=== PATIENT | female | born 1945 | race Caucasian/White ===

== ENCOUNTER 2020-06-09 14:44 | Inpatient (IN) | payer MEDICARE ==
[~2020-06-09] VITALS: Ht 167.6 cm; Wt 89.8 kg
--- NOTE | 2020-06-09 14:45 | NUR ---
MAL 38 FROM [facility] C/O R LEG/HIP AND R SHOULDER PAIN S/P GLF 2 DAYS AGO. TO ER BED 10, HOOKED TO MONITOR, CHANGED TO HOSP GOWN, WARM BLANKET PROVIDED, PATIENT AAOx2. NAD NOTED. AWAITING MD MARSH
[2020-06-09] MEDS ORDERED: DULO30CA52 PO (14:55)
[2020-06-09] MEDS ORDERED: LOVA40TA2 PO (14:55)
[2020-06-09] MEDS ORDERED: SERT-438 PO (14:55)
[2020-06-09] MEDS ORDERED: LEVO100T9 PO (14:55)
[2020-06-09] MEDS ORDERED: AMIO100T4 PO (14:55)
[2020-06-09] MEDS ORDERED: OXYB10TA30 PO (14:55)
[2020-06-09] MEDS ORDERED: ALLO100T PO (14:55)
[2020-06-09] MEDS ORDERED: SENN-261 PO (14:55)
[2020-06-09] MEDS ORDERED: MAGN500T2 PO (14:55)
[2020-06-09] MEDS ORDERED: DOCU-270 PO (14:55)
[2020-06-09] MEDS ORDERED: FAMO20TA8 PO (14:55)
[2020-06-09] MEDS ORDERED: ASPI-1420 PO (14:55)
[2020-06-09] MEDS ORDERED: LEVE100023 PO (14:55)
[2020-06-09] MEDS ORDERED: METF-440 PO (14:55)
[2020-06-09] MEDS ORDERED: DONE10TA44 PO (14:55)
--- NOTE | 2020-06-09 15:06 | NUR ---
DAUGHTER: HONEY WHALEN [phone]
--- NOTE | 2020-06-09 15:07 | NUR ---
SOPHIA Pineda[facility]C [phone]
--- NOTE | 2020-06-09 15:17 | NUR ---
HEALTH CARE SANITARY TECHNICIAN AT BEDSIDE
[2020-06-09 15:20] LABS: BASOPHILS # (AUTO) 0.2 /CMM (0.0-0.2); BASOPHILS % (AUTO) 1.3 % (0.0-2.0); EOSINOPHILS % (AUTO) 8.2 % (0.0-6.0); HEMATOCRIT 41 % (33-45); HEMOGLOBIN 13.3 g/dL (11.5-14.8); LYMPHOCYTES % (AUTO) 18.5 % (20.0-44.0); MEAN CORPUSCULAR HGB CONC 32 g/dl (31.0-36.0); MEAN CORPUSCULAR VOLUME 96 fL (82-100); MONOCYTES # (AUTO) 1.9 /CMM (0.1-1.30); NEUTROPHILS # (AUTO) 9.6 /CMM (1.8-8.9); PLATELET COUNT (AUTO) 144 /CMM (150-450); RED BLOOD CELL COUNT(AUTO) 4.26 MIL/uL (4.0-5.2)
[2020-06-09 15:35] LABS: CALCIUM, SERUM 8.6 mg/dL (8.5-10.1); CREATININE 1.3 mg/dL (0.6-1.3); POTASSIUM 4.3 mmol/L (3.5-5.1)
--- NOTE | 2020-06-09 16:19 | NUR ---
PAGED ORTHO PACKING CHECKER.
--- NOTE | 2020-06-09 17:16 | NUR ---
RAPID AND PCR COVID SWAB DONE AND SENT TO LAB
--- NOTE | 2020-06-09 17:41 | NUR ---
REPORT GIVEN TO RICARDO PULIDO OF [facility]
--- NOTE | 2020-06-09 18:06 | NUR ---
RECEIVED RESULT FROM MAIN LAB: RAPID COVID NEGATIVE
[2020-06-09] MEDS ORDERED: HYDROCODONE/APAP 5/325MG TABLET PO PRN (18:30)
[2020-06-09] MEDS ORDERED: MAGNESIUM HYDROXIDE 30 ML UDC PO PRN (18:30)
[2020-06-09] MEDS ORDERED: MAG HYDROX/AL HYDROX/SIMETH 30 ML UDC PO PRN (18:30)
[2020-06-09] MEDS ORDERED: MORPHINE SULFATE INJ 2 MG/ML DISP.SYRIN IV PRN (18:30)
[2020-06-09] MEDS ORDERED: ONDANSETRON HCL/PF 4 MG/2 ML VIAL IVP PRN (18:30)
--- NOTE | 2020-06-09 18:43 | NUR ---
RN NOTES RECEIVED PT FROM ER. A/O X3-4. SATURATING 100% ON ROOM AIR. IV ACCESS AT L AC #20 INTACT, PATENT AND FLUSHED. SKIN IS INTACT. WITH R SHOULDER AND R HIP FRACTURE. SAFETY MEASURES IN PLACE. CALL LIGHT WITHIN REACH. BED LOCKED AND AT LOWEST POSITION WITH SIDE RAILS UP X2. WILL ENDORSE TO NIGHT RN FOR ABRIL.
--- NOTE | 2020-06-09 19:01 | NUR ---
CALLED DAUGHTER, AINSLEY FRYE, MAILBOX FULL
--- NOTE | 2020-06-09 19:30 | NUR ---
RN OPENING NOTES: RECEIVED PT A/OX3-4 IN BED RESTING COMFORTABLY. PATIENT IN NO S/SX OF ACUTE DISTRESS AT THIS TIME. NO SOB NOTED. PATIENT'S BREATHING IS EVEN AND UNLABORED. PATIENT IS ON ROOM AIR; TOLERATING WELL; SATING 94% OF 02 AT THE TIME OF RECEIVED. PATIENT ON CARDIAC DIET; TOLERATES WELL. NOTED IV SITE ON L FA #20; PATENT, INTACT AND FLUSHING WELL; NO S/S OF INFECTION OR INFILTRATION. SAFETY MEASURES HAVE BEEN PROVIDED AND IMPLEMENTED. PATIENT BED ALARM IS ON. HEAD OF BED ELEVATED. BED IS LOCKED, IN LOWEST POSITION AND SIDE RAILS UP. CALL LIGHT WITHIN REACH OF THE PATIENT. APPLICABLE ISOLATION PRECAUTIONS IN PLACE. WILL CONTINUE TO MONITOR AND REASSESS FOR ANY CHANGES AND WILL CARRY OUT ALL ADMISSION ORDERS.
[2020-06-09 20:00] VITALS: BP 125/91
[2020-06-09] MEDS: LEVETIRACETAM (250 MG) 250 MG TABLET PO SCH (20:46)
[2020-06-09] MEDS: ATORVASTATIN 10 MG TABLET PO SCH (20:46)
[2020-06-09 20:59] LABS: THYROID STIMULATING HORMONE 3.589 uIU/mL (0.358-3.74)
[2020-06-09] MEDS ORDERED: ZOLPIDEM TARTRATE 5 MG TABLET PO PRN (21:00)
[2020-06-09] MEDS: SENNOSIDES 8.6 MG TABLET PO SCH (21:26)
--- NOTE | 2020-06-09 21:35 | NUR ---
RN NOTES PATIENT'S FAMILY CALLED TO GET UPDATES. SPOKE WITH (HONEY), PROVIDED GENERAL UPDATES ABOUT PT'S CONDITION; V/S WNL AT THIS TIME. ADVISED THAT PT IS TO BE SEEN BY CARDIO AND ORTHO FOR CONSULT. ASSURED PATIENT RELATIVE THAT WILL KEEP THEM POSTED FOR ANY SUDDEN CHANGES TO PT'S CONDITION. FAMILY VERY THANKFUL ABOUT CARE BEING PROVIDED TO THE PATIENT. RN ACKNOWLEDGED. ALSO TRIED TO VERIFY IF PATIENT GOT PNEUMONIA AND FLU VACCINE; HONEY SAID YES, ALSO TRIED TO VERIFY FOR THE CODE STATUS OF PATIENT AND SHE SAID SHE WILL CALLBACK TO CONFIRM. WRAPPER SELECTOR MADE AWARE.
--- NOTE | 2020-06-09 22:15 | NUR ---
RN NOTES RECEIVED CALLBACK FROM HONEY (DAUGHTER OF PATIENT) ADVISING ABOUT CODE STATUS OF THE PATIENT; SHE SAID THEY HAVE DECIDED FOR A FULL CODE FOR NOW; BUT WILL CALL IF THERE ARE ANY CHANGES TO CODE STATUS, RN ACKNOWLEDGED. CHARGE NURSE WELL AWARE AND SPOKE WITH HONEY TO CONFIRM CODE STATUS.
--- NOTE | 2020-06-09 22:45 | NUR ---
RN NOTES FACILITATED PLACEMENT OF LANDIN CATHETER; DONE ASEPTICALLY, SECURED TO ; THIGH .CLEAR YELLOW URINE RETURN NOTED IN THE TUBE. PATIENT TOLERATED PROCEDURE. WILL COLLECT URINE SAMPLE ONCE URINE OUTPUT IS ENOUGH. DISABILITY AIDE MADE AWARE. WILL CONTINUE TO ASSESS AND MONITOR THROUGHOUT THE SHIFT.
--- NOTE | 2020-06-09 23:30 | NUR ---
RN NOTES PATIENT REMAINS IN NO ACUTE RESPIRATORY DISTRESS AT THIS TIME, NO CHANGES TO CONDITION/STATUS. MEAT COUNTER WORKER WELL AWARE. WILL CONTINUE TO MONITOR AND REASSESS FOR ANY CHANGES THROUGHOUT THE SHIFT
--- NOTE | 2020-06-10 03:00 | NUR ---
RN NOTES NO CHANGES IN PATIENT CONDITION AT THIS TIME PATIENT VITALS STABLE, NO SIGNS OF ACUTE RESPIRATORY DISTRESS. PATIENT STILL IN BED SLEEPING COMFORTABLY. NO COMPLAINTS OF PAIN OR ANY DISCOMFORT AT THIS TIME. WILL CONTINUE TO MONITOR AND REASSESS FOR ANY CHANGES THROUGHOUT THE SHIFT.
[2020-06-10 04:00] VITALS: BP 138/85
[2020-06-10 06:10] LABS: BASOPHILS # (AUTO) 0.1 /CMM (0.0-0.2); EOSINOPHILS % (AUTO) 5.7 % (0.0-6.0); HEMATOCRIT 39 % (33-45); HEMOGLOBIN 13.1 g/dL (11.5-14.8); LYMPHOCYTES # (AUTO) 2.4 /CMM (0.8-4.8); LYMPHOCYTES % (AUTO) 18.5 % (20.0-44.0); MEAN CORPUSCULAR HGB CONC 33 g/dl (31.0-36.0); MEAN CORPUSCULAR VOLUME 93 fL (82-100); MONOCYTES # (AUTO) 1.6 /CMM (0.1-1.30); NEUTROPHILS # (AUTO) 8.2 /CMM (1.8-8.9); NEUTROPHILS % (AUTO) 62.8 % (43.0-81.0); PLATELET COUNT (AUTO) 157 /CMM (150-450); RED BLOOD CELL COUNT(AUTO) 4.22 MIL/uL (4.0-5.2); WHITE BLOOD COUNT (AUTO) 13.1 K/uL (4.3-11.0)
[2020-06-10 06:27] LABS: CREATININE 1.1 mg/dL (0.6-1.3); PHOSPHORUS 4.5 mg/dL (2.5-4.9); POTASSIUM 4.1 mmol/L (3.5-5.1)
[2020-06-10 06:30] LABS: THYROID STIMULATING HORMONE 2.73 uIU/mL (0.358-3.74)
--- NOTE | 2020-06-10 07:04 | NUR ---
RN CLOSING NOTE: PATIENT REMAINS IN ROOM IN NO SIGNS OF RESPIRATORY DISTRESS, PATIENT STILL ON ROOM AIR;TOLERATING WELL SATURATING @ >95% SP02. WILL ENDORSE TO AM SHIFT RN TO SECURE URINE SPECIMEN WITHIN THE SHIFT. SAFETY MEASURES IMPLEMENTED, BED IN LOWEST POSITION, LOCKED, SIDE RAILS UP, CALL LIGHT WITHIN REACH. ALL NEEDS AND ORDERS ADDRESSED DURING THE SHIFT. IV ACCESS MAINTAINED INTACT, SECURED AND FLUSHING WELL. ALL DUE MEDS GIVEN ORDERED & SCHEDULED ; PATIENT TOLERATED WELL. PATIENT KEPT CLEAN AND COMFORTABLE WITHIN THE SHIFT. PATIENT ENDORSED TO INCOMING SHIFT RN WITH STABLE VITAL SIGN AND FOR CONTINUITY OF CARE.
--- NOTE | 2020-06-10 07:10 | NUR ---
RN OPENING NOTE: PATIENT RECEIVED IN ROOM IN NO SIGNS OF RESPIRATORY DISTRESS, PATIENT ON ROOM AIR TOLERATING WELL. IV ACCESS INTACT, PATENT, AND FLUSHING WELL. LAY OUT CARPENTER REPORTED THAT PATIENT IS ON NPO STATUS SINCE MIDNIGHT FOR POSSIBLE SURGERY. SAFETY MEASURES IMPLEMENTED, BED LOCKED AND IN LOWEST POSITION, SIDE RAILS UP, CALL LIGHT WITHIN REACH. WILL CONTINUE TO MONITOR AND PROVIDE CARE THROUGHOUT SHIFT.
[2020-06-10] MEDS: LEVOTHYROXINE SODIUM 100 MCG TABLET PO SCH (07:30)
[2020-06-10] MEDS: LEVETIRACETAM (250 MG) 250 MG TABLET PO SCH ×2 (09:00→16:40)
[2020-06-10] MEDS: ALLOPURINOL 100 MG TABLET PO SCH ×2 (09:00→16:40)
[2020-06-10] MEDS: DOCUSATE SODIUM 100 MG CAPSULE PO SCH ×2 (09:00→16:40)
[2020-06-10] MEDS: ASPIRIN EC 81 MG TABLET.DR PO SCH (09:00)
[2020-06-10] MEDS: ENOXAPARIN SODIUM 40 MG/0.4 ML DISP.SYRIN SQ SCH (09:00)
[2020-06-10] MEDS: DULOXETINE HCL 30 MG CAPSULE.DR PO SCH (09:00)
[2020-06-10] MEDS: MAGNESIUM OXIDE 400 MG TABLET PO SCH (09:00)
[2020-06-10] MEDS: SERTRALINE HCL 50 MG TABLET PO SCH (09:00)
[2020-06-10] MEDS: PANTOPRAZOLE 40 MG VIAL IV SCH (09:00)
[2020-06-10] MEDS: DONEPEZIL 5 MG TABLET PO SCH (09:00)
[2020-06-10] MEDS: AMIODARONE HCL 200 MG TABLET PO SCH (09:00)
[2020-06-10] MEDS: METFORMIN 500 MG TABLET PO SCH ×2 (09:00→16:39)
[2020-06-10] MEDS: OXYBUTYNIN CHLORIDE ER 5 MG TAB PO SCH (09:00)
--- NOTE | 2020-06-10 11:00 | NUR ---
VALERIE SAID TO HOLD MORNING MEDS DUE TO POSSIBLE SURGERY AND NPO STATUS. SPOKE WITH DR. EDWARDS ABOUT SURGERY. DOCTOR STATED SURGERY WILL BE FOR TOMORROW MORNING 8:00 AM. PATIENT WILL BE GETTING RIGHT HIP BIPOLAR REPLACEMENT. MD GAVE OK TO RESUME DIET UNTIL MIDNIGHT AND THEN KEEP NPO STATUS PRIOR TO SURGERY. MEDICATIONS WILL BE RESUMED.
[2020-06-10 12:00] VITALS: BP 142/83
[2020-06-10] MEDS: ATORVASTATIN 10 MG TABLET PO SCH (17:12)
--- NOTE | 2020-06-10 19:16 | NUR ---
RN OPENING NOTE: PATIENT IN ROOM IN NO SIGNS OF RESPIRATORY DISTRESS, PATIENT ON ROOM AIR TOLERATING WELL. IV ACCESS INTACT, PATENT, AND FLUSHING WELL. SAFETY MEASURES IMPLEMENTED, BED LOCKED AND IN LOWEST POSITION, SIDE RAILS UP, CALL LIGHT WITHIN REACH. NEW LANDIN INSERTED SIZE 18 COMORAN DUE TO LEAKAGE OF PREVIOUS LANDIN SIZE 16 COMORAN. WILL ENDORSE CONTINUATION OF CARE TO UPCOMING SHIFT.
[2020-06-10 20:00] VITALS: BP 114/75
--- NOTE | 2020-06-10 20:00 | NUR ---
RN NOTE NURSE PERFORMED BLADDER SCAN AND PATIENT SCAN SHOWED 194ML
[2020-06-10] MEDS: SENNOSIDES 8.6 MG TABLET PO SCH (21:11)
[2020-06-11 04:00] VITALS: BP 156/96
[2020-06-11 06:57] LABS: BASOPHILS # (AUTO) 0.1 /CMM (0.0-0.2); BASOPHILS % (AUTO) 1.1 % (0.0-2.0); EOSINOPHILS % (AUTO) 8.2 % (0.0-6.0); HEMATOCRIT 40 % (33-45); HEMOGLOBIN 13.3 g/dL (11.5-14.8); LYMPHOCYTES # (AUTO) 2.4 /CMM (0.8-4.8); MEAN CORPUSCULAR HGB CONC 33 g/dl (31.0-36.0); MEAN CORPUSCULAR VOLUME 93 fL (82-100); MONOCYTES # (AUTO) 1.6 /CMM (0.1-1.30); MONOCYTES % (AUTO) 13.2 % (2.0-12.0); NEUTROPHILS # (AUTO) 6.9 /CMM (1.8-8.9); NEUTROPHILS % (AUTO) 57.5 % (43.0-81.0); PLATELET COUNT (AUTO) 157 /CMM (150-450)
[2020-06-11] MEDS: LEVOTHYROXINE SODIUM 100 MCG TABLET PO SCH (07:30)
--- NOTE | 2020-06-11 07:30 | NUR ---
MED-SURG OPENING NOTE: PATIENT IN BED, RESTING. NO S/S OF RESPIRATORY DISTRESS ON ROOM AIR. O2 SATURATION 93%. ALERT/ORIENTED X3/4. IV NOTED ON L FOREARM 20G, INTACT AND PATENT. SALINE FLUSHED. PATIENT CURRENTLY NPO DUE TO SURGERY SCHEDULED AT 0800; PATIENT SCHEDULED FOR A R HIP BIPOLAR REPLACEMENT. ALL CONSENTS IN CHART, SURGERY CHECKLIST COMPLETED. PATIENT NPO SINCE MIDNIGHT 06/11/20. ALL SAFETY MEASURES IN PLACE PER HOSPITAL POLICY. CALL LIGHT WITHIN REACH. BED LOCKED IN LOWEST POSITION. WILL CONTINUE TO MONITOR AND PROVIDE TREATMENT.
[2020-06-11 07:31] LABS: CALCIUM, SERUM 8.8 mg/dL (8.5-10.1); CREATININE 1.1 mg/dL (0.6-1.3); POTASSIUM 3.7 mmol/L (3.5-5.1)
[2020-06-11 07:38] LABS: BILIRUBIN,URINE NEGATIVE (NEGATIVE); COLOR,URINE YELLOW (YELLOW); LEUKOCYTE ESTERASE ,URINE MODERATE (NEGATIVE); NITRITE, URINE NEGATIVE (NEGATIVE); PROTEIN,URINE NEGATIVE (NEGATIVE); UGLUCOSE NEGATIVE (NEGATIVE); UROBILINOGEN,URINE 0.2 EU/dL (0.2)
[2020-06-11 07:39] LABS: PH,URINE >9.0 (5.0-8.0)
[2020-06-11 08:04] LABS: RBC,URINE 0-2 /HPF (0-2)
[2020-06-11 08:05] LABS: BACTERIA,URINE Moderate /HPF (None Seen); SQUAMOUS EPITHELIAL CELL,UR Many /HPF (None Seen); TRIPLE PHOSPHATE CRYSTAL,UR Moderate /HPF (None Seen); URINE AMORPHOUS PHOSPHATES Moderate /HPF (None Seen)
--- NOTE | 2020-06-11 08:50 | NUR ---
PATIENT TAKEN FOR SURGERY.
[2020-06-11] MEDS: MAGNESIUM OXIDE 400 MG TABLET PO SCH (09:00)
[2020-06-11] MEDS: DULOXETINE HCL 30 MG CAPSULE.DR PO SCH (09:00)
[2020-06-11] MEDS: LEVETIRACETAM (250 MG) 250 MG TABLET PO SCH ×2 (09:00→16:28)
[2020-06-11] MEDS: ENOXAPARIN SODIUM 40 MG/0.4 ML DISP.SYRIN SQ SCH (09:00)
[2020-06-11] MEDS: SERTRALINE HCL 50 MG TABLET PO SCH (09:00)
[2020-06-11] MEDS: AMIODARONE HCL 200 MG TABLET PO SCH (09:00)
[2020-06-11] MEDS: METFORMIN 500 MG TABLET PO SCH ×2 (09:00→16:38)
[2020-06-11] MEDS: OXYBUTYNIN CHLORIDE ER 5 MG TAB PO SCH (09:00)
[2020-06-11] MEDS: ASPIRIN EC 81 MG TABLET.DR PO SCH (09:00)
[2020-06-11] MEDS: DOCUSATE SODIUM 100 MG CAPSULE PO SCH ×2 (09:00→16:28)
[2020-06-11] MEDS: PANTOPRAZOLE 40 MG VIAL IV SCH (09:00)
[2020-06-11] MEDS: ALLOPURINOL 100 MG TABLET PO SCH ×2 (09:00→16:28)
[2020-06-11] MEDS: DONEPEZIL 5 MG TABLET PO SCH (09:00)
[2020-06-11] MEDS ORDERED: BACITRACIN 50000 UNITS/VIAL ONE (09:05)
[2020-06-11] MEDS ORDERED: BUPIVACAINE 0.5 % PF 150 MG/30 ML VIAL ONE (09:05)
[2020-06-11] MEDS ORDERED: ANESTHESIA TRAY IN PYXIS 1 EA TRAY MC ONE (09:05)
[2020-06-11] MEDS ORDERED: FENTANYL PF 100MCG/2ML AMPUL ONE (09:32)
[2020-06-11] MEDS ORDERED: ROCURONIUM BROMIDE 50 MG/5 ML ONE (09:32)
[2020-06-11] MEDS ORDERED: SUCCINYLCHOLINE CHLORIDE 20 MG/ML VIAL ONE (09:32)
[2020-06-11] MEDS ORDERED: VANCOMYCIN 1 GM VIAL ONE (10:20)
[2020-06-11] MEDS ORDERED: LABETALOL HCL IV 100MG VIAL ONE (11:03)
--- NOTE | 2020-06-11 12:00 | NUR ---
PATIENT RETURNED FROM SURGERY IN STABLE CONDITION. ORDERS CARRIED OUT.
[2020-06-11] MEDS: IV D5/0.45 NACL W/20 MEQ KCL 1L IV PRN ×2 (12:39)
[2020-06-11 16:00] VITALS: BP 124/80
[2020-06-11] MEDS: MORPHINE SULFATE INJ 4 MG/ML DISP.SYRIN IV PRN (16:29)
[2020-06-11] MEDS: ATORVASTATIN 10 MG TABLET PO SCH (17:22)
[2020-06-11] MEDS: ANCEF 1 GM/50 ML D5W IV SCH ×2 (17:37)
--- NOTE | 2020-06-11 18:33 | NUR ---
MED-SURG CLOSING NOTE: PATIENT IN BED, RESTING. NO S/S OF RESPIRATORY DISTRESS ON ROOM AIR. O2 SATURATION 96%. ALERT/ORIENTED X3/4. IV NOTED ON L FOREARM 20G, INTACT AND PATENT. SALINE FLUSHED. CURRENTLY IC FLUIDS D5W1/2NS WITH 20MEQ POTASSIUM RUNNING AT 75ML/HR. PATIENT CURRENTLY ON REGULAR DIET, UNABLE TO TOLERATE DINNER. PATIENT STATED THEY HAD NO APPETITE. IV FLUIDS TO CONTINUE UNTIL PATIENT IS ABLE TO TOLERATE PO FOODS. SURGICAL DRESSING INTACT AND DRY. ALL SAFETY MEASURES IN PLACE PER HOSPITAL POLICY. CALL LIGHT WITHIN REACH. BED LOCKED IN LOWEST POSITION. WILL ENDORSE TO CANNING MACHINE OPERATOR NURSE FOR CONTINUATION OF CARE.
--- NOTE | 2020-06-11 19:15 | NUR ---
MS1 RN NOTES RECEIVED SOUND ASLEEP.AROUSABLE TO VERBAL STIMULI,BREATHING REGULAR,NOT IN ANY FORM OF DISTRESS.S/P RIGHT HIP ORIF TODAY BY DR EDWARDS.DRESSING INTACT AND DRY,ABDUCTION PILLOW IN PLACE.DVT PUMP IN USED ON LEFT LEG,IVF WITH 20MEQ INFUSING WELL ON LFA SALINE LOCK VIA IV PUMP.LANDIN CATH IN PLACE DRAINING YELLOWISH OUTPUT.CALL LIGHT IN REACH,NEEDS ANTICIPATED.
[2020-06-11 20:00] VITALS: BP 97/59
[2020-06-11] MEDS: SENNOSIDES 8.6 MG TABLET PO SCH (21:29)
[2020-06-12] MEDS: IV D5/0.45 NACL W/20 MEQ KCL 1L IV PRN ×2 (01:53)
[2020-06-12] MEDS: ANCEF 1 GM/50 ML D5W IV SCH ×4 (01:53→09:19)
--- NOTE | 2020-06-12 02:00 | NUR ---
MS1 RN NOTES DUE IV ABX HUNG AND INFUSED.
[2020-06-12 04:00] VITALS: BP 101/59
--- NOTE | 2020-06-12 05:00 | NUR ---
MS1 RN NOTES AWAKE,OFFERED PAIN MANAGEMENT BUT REFUSED,CLAIMED SHES OKAY.REFUSED TO BE REPOSITIONED.
--- NOTE | 2020-06-12 06:18 | NUR ---
MS1 RN NOTES NO COMPLAINTS OF PAIN,SAYS PAIN TOLERABLE AND WILL CALL IF PAIN NOT TOLERABLE.IVF INFUSING WELL VIA IV PUMP.LANDIN CATH DRAINS WELL.IN NO ACUTE DISTRESS.
[2020-06-12 06:50] LABS: BASOPHILS % (AUTO) 0.4 % (0.0-2.0); EOSINOPHILS % (AUTO) 0.2 % (0.0-6.0); HEMATOCRIT 34 % (33-45); HEMOGLOBIN 10.9 g/dL (11.5-14.8); LYMPHOCYTES # (AUTO) 1.8 /CMM (0.8-4.8); LYMPHOCYTES % (AUTO) 14.1 % (20.0-44.0); MEAN CORPUSCULAR HGB CONC 32 g/dl (31.0-36.0); MEAN CORPUSCULAR VOLUME 95 fL (82-100); MONOCYTES # (AUTO) 1.7 /CMM (0.1-1.30); MONOCYTES % (AUTO) 13.7 % (2.0-12.0); NEUTROPHILS % (AUTO) 71.6 % (43.0-81.0); PLATELET COUNT (AUTO) 171 /CMM (150-450); RED BLOOD CELL COUNT(AUTO) 3.56 MIL/uL (4.0-5.2); WHITE BLOOD COUNT (AUTO) 12.6 K/uL (4.3-11.0)
--- NOTE | 2020-06-12 07:10 | NUR ---
RN OPENING NOTE PATIENT RECEIVED IN ROOM RESTING COMFORTABLY IN NO SIGNS OF RESPIRATORY DISTRESS. PATIENT ON ROOM AIR TOLERATING WELL. IV ACCESS INTACT, PATENT, AND FLUSHING WELL. SAFETY MEASURES IMPLEMENTED, BED LOCKED AND IN LOWEST POSITION, SIDE RAILS UP, CALL LIGHT WITHIN REACH. WILL CONTINUE TO MONITOR AND PROVIDE CARE THROUGHOUT SHIFT.
[2020-06-12] MEDS: LEVOTHYROXINE SODIUM 100 MCG TABLET PO SCH (08:24)
[2020-06-12] MEDS: PANTOPRAZOLE 40 MG VIAL IV SCH (08:24)
[2020-06-12] MEDS: ASPIRIN EC 81 MG TABLET.DR PO SCH (08:27)
[2020-06-12] MEDS: DONEPEZIL 5 MG TABLET PO SCH (08:27)
[2020-06-12] MEDS: DOCUSATE SODIUM 100 MG CAPSULE PO SCH ×2 (08:27→16:45)
[2020-06-12] MEDS: AMIODARONE HCL 200 MG TABLET PO SCH (08:28)
[2020-06-12] MEDS: DULOXETINE HCL 30 MG CAPSULE.DR PO SCH (08:28)
[2020-06-12] MEDS: LEVETIRACETAM (250 MG) 250 MG TABLET PO SCH ×2 (08:29→16:47)
[2020-06-12] MEDS: OXYBUTYNIN CHLORIDE ER 5 MG TAB PO SCH (08:29)
[2020-06-12] MEDS: METFORMIN 500 MG TABLET PO SCH ×2 (08:29→16:45)
[2020-06-12] MEDS: MAGNESIUM OXIDE 400 MG TABLET PO SCH (08:29)
[2020-06-12] MEDS: ALLOPURINOL 100 MG TABLET PO SCH ×2 (08:30→16:46)
[2020-06-12] MEDS: SERTRALINE HCL 50 MG TABLET PO SCH (08:30)
[2020-06-12] MEDS: ENOXAPARIN SODIUM 40 MG/0.4 ML DISP.SYRIN SQ SCH (08:34)
[2020-06-12 08:38] LABS: CALCIUM, SERUM 8.5 mg/dL (8.5-10.1); CREATININE 1.3 mg/dL (0.6-1.3)
[2020-06-12 12:00] VITALS: BP 120/64
[2020-06-12] MEDS ORDERED: DEXTROSE 50%-WATER 50 ML DISP.SYRIN IV PRN (12:30)
[2020-06-12] MEDS: ACETAMINOPHEN 325 MG TABLET PO PRN (14:02)
[2020-06-12] MEDS: BLOOD SUGAR DIAGNOSTIC 1 EACH STRIP IN SCH ×2 (16:59→21:48)
[2020-06-12] MEDS: ATORVASTATIN 10 MG TABLET PO SCH (17:55)
--- NOTE | 2020-06-12 18:54 | NUR ---
RN CLOSING NOTE PATIENT IN ROOM RESTING COMFORTABLY IN NO SIGNS OF RESPIRATORY DISTRESS. PATIENT ON ROOM AIR TOLERATING WELL. IV ACCESS INTACT, PATENT, AND FLUSHING WELL. ABDUCTOR PILLOW PRESENT AND SECURED. RIGHT UPPER ARM SLING NOTED. SAFETY MEASURES IMPLEMENTED, BED LOCKED AND IN LOWEST POSITION, SIDE RAILS UP, CALL LIGHT WITHIN REACH. WILL ENDORSE CONTINUATION OF CARE TO UPCOMING SHIFT.
[2020-06-12] MEDS: MORPHINE SULFATE INJ 4 MG/ML DISP.SYRIN IV PRN (19:46)
--- NOTE | 2020-06-12 19:58 | NUR ---
RN NOTE RECEIVED PT IN BED, ALERT. NOT IN ANY DISTRESS. COMPLAINED OF PAIN 10/10 PAIN ON RIGHT HIP AND SHOULDER. R/HIP DRESSING CLEAN DRY AND INTACT. LFA IV LINE PATENT AND INTACT. MORPHINE IV GIVEN DUE TO PAIN. HIP ABDUCTOR PILLOW IN PLACE. WILL CONTINUE TO MONITOR. ALL SAFETY MEASURES IMPLEMENTED PER PROTOCOL, CALL LIGHT WITHIN REACH, BED LOCKED IN LOWEST POSITION. SIDE RAILS UP X 2.
[2020-06-12 20:00] VITALS: BP 111/64
[2020-06-12] MEDS: SENNOSIDES 8.6 MG TABLET PO SCH (21:41)
[2020-06-13] MEDS: MORPHINE SULFATE INJ 4 MG/ML DISP.SYRIN IV PRN (01:08)
[2020-06-13 04:00] VITALS: BP 117/68
[2020-06-13 05:55] LABS: BASOPHILS # (AUTO) 0.2 /CMM (0.0-0.2); BASOPHILS % (AUTO) 1.8 % (0.0-2.0); EOSINOPHILS % (AUTO) 3.1 % (0.0-6.0); HEMATOCRIT 32 % (33-45); HEMOGLOBIN 10.3 g/dL (11.5-14.8); LYMPHOCYTES # (AUTO) 2.7 /CMM (0.8-4.8); LYMPHOCYTES % (AUTO) 22.1 % (20.0-44.0); MEAN CORPUSCULAR HGB CONC 32 g/dl (31.0-36.0); MEAN CORPUSCULAR VOLUME 95 fL (82-100); MONOCYTES # (AUTO) 1.8 /CMM (0.1-1.30); MONOCYTES % (AUTO) 15.2 % (2.0-12.0); NEUTROPHILS # (AUTO) 7.1 /CMM (1.8-8.9); NEUTROPHILS % (AUTO) 57.8 % (43.0-81.0); PLATELET COUNT (AUTO) 177 /CMM (150-450); RED BLOOD CELL COUNT(AUTO) 3.34 MIL/uL (4.0-5.2); WHITE BLOOD COUNT (AUTO) 12.2 K/uL (4.3-11.0)
[2020-06-13 06:12] LABS: CALCIUM, SERUM 8.3 mg/dL (8.5-10.1); CREATININE 1.1 mg/dL (0.6-1.3); POTASSIUM 4.1 mmol/L (3.5-5.1)
--- NOTE | 2020-06-13 06:27 | NUR ---
RN NOTE PT SLEEPING, EASILY AROUSABLE BY VERBAL TACTILE. WITH TOLERABLE PAIN ON RIGHT SHOULDER AND HIP, OFFERED PAIN MED, REFUSED, PT VERBALIZES SHE'S OK FOR NOW. KEPT IN A COMFORTABLE AND PAIN FREE ENVIRONMENT. ATTENDED NEEDS. LANDIN CATH INDWELLING WELL WITH CLEAR URINE OUTPUT. NO S/SX OF HYPO/HYPERGLYCEMIA NOTED. ALL SAFETY MEASURES MAINTAINED. CALL LIGHT WITHIN REACH AT ALL TIMES.
--- NOTE | 2020-06-13 07:10 | NUR ---
RN OPENING NOTE PATIENT IN ROOM RESTING COMFORTABLY IN NO SIGNS OF RESPIRATORY DISTRESS. PATIENT ON ROOM AIR TOLERATING WELL. IV ACCESS INTACT, PATENT, AND FLUSHING WELL. ABDUCTOR PILLOW PRESENT AND SECURED. RIGHT UPPER ARM SLING NOTED. SAFETY MEASURES IMPLEMENTED, BED LOCKED AND IN LOWEST POSITION, SIDE RAILS UP, CALL LIGHT WITHIN REACH. WILL CONTINUE TO MONITOR AND PROVIDE CARE THROUGHOUT SHIFT.
[2020-06-13] MEDS: LEVOTHYROXINE SODIUM 100 MCG TABLET PO SCH (07:46)
[2020-06-13] MEDS: BLOOD SUGAR DIAGNOSTIC 1 EACH STRIP IN SCH ×4 (07:57→21:44)
[2020-06-13] MEDS: DONEPEZIL 5 MG TABLET PO SCH (09:12)
[2020-06-13] MEDS: PANTOPRAZOLE 40 MG VIAL IV SCH (09:12)
[2020-06-13] MEDS: DOCUSATE SODIUM 100 MG CAPSULE PO SCH ×2 (09:13→16:09)
[2020-06-13] MEDS: ASPIRIN EC 81 MG TABLET.DR PO SCH (09:13)
[2020-06-13] MEDS: DULOXETINE HCL 30 MG CAPSULE.DR PO SCH (09:14)
[2020-06-13] MEDS: AMIODARONE HCL 200 MG TABLET PO SCH (09:14)
[2020-06-13] MEDS: OXYBUTYNIN CHLORIDE ER 5 MG TAB PO SCH (09:15)
[2020-06-13] MEDS: METFORMIN 500 MG TABLET PO SCH ×2 (09:15→16:09)
[2020-06-13] MEDS: ALLOPURINOL 100 MG TABLET PO SCH ×2 (09:16→16:09)
[2020-06-13] MEDS: LEVETIRACETAM (250 MG) 250 MG TABLET PO SCH ×2 (09:16→16:09)
[2020-06-13] MEDS: SERTRALINE HCL 50 MG TABLET PO SCH (09:16)
[2020-06-13] MEDS: MAGNESIUM OXIDE 400 MG TABLET PO SCH (09:16)
[2020-06-13] MEDS: ENOXAPARIN SODIUM 40 MG/0.4 ML DISP.SYRIN SQ SCH (09:20)
--- NOTE | 2020-06-13 10:31 | NUR ---
WOUND CARE CONSULT: REVIEWED CHART, NURSING DOCUMENTATION AND PHOTOS WHICH INDICATE RT ELBOW DRY ABRASION, RT SHOULDER DISCOLORATION AND INTACT DEEP TISSUE INJURY TO SACRUM, ALL PRESENT ON ADMISSION. RECOMMENDATIONS MADE FOR WOUND CARE AND SKIN PROTECTION. DISCUSSED WITH NURSING STAFF AND SHAPE CARVER. FIRST STEP LOW AIRLOSS MATTRESS IS ON ORDER. MD IN AGREEMENT WITH PLAN OF CARE.
[2020-06-13] MEDS ORDERED: Z GUARD REMEDY 2 OZ OINT TP PRN (11:00)
[2020-06-13] MEDS: Z GUARD REMEDY 2 OZ OINT TP SCH (11:45)
[2020-06-13 12:00] VITALS: BP 115/64
[2020-06-13] MEDS: HYDROCODONE/APAP 10/325MG TABLET PO PRN (16:35)
[2020-06-13] MEDS: ATORVASTATIN 10 MG TABLET PO SCH (17:34)
--- NOTE | 2020-06-13 19:29 | NUR ---
RN NOTE RECEIVED PT IN BED, AWAKE. NOT IN ANY DISTRESS. TOLERABLE PAIN ON RIGHT ARM AND RIGHT HIP. SURGICAL DRESSING CLEAN DRY AND INTACT. LFA IV LINE PATENT AND INTACT. HIP ABDUCTOR PILLOW IN PLACE. PT WITH LANDIN CATH WITH CLEAR URINE OUTPUT. WILL CONTINUE TO MONITOR. ALL SAFETY MEASURES IMPLEMENTED PER PROTOCOL, CALL LIGHT WITHIN REACH, BED LOCKED IN LOWEST POSITION. SIDE RAILS UP X 2.
[2020-06-13 20:00] VITALS: BP 115/55
[2020-06-13] MEDS: SENNOSIDES 8.6 MG TABLET PO SCH (21:28)
--- NOTE | 2020-06-14 00:15 | NUR ---
RN NOTE PT SLEEPING COMFORTABLY. NO SIGNS OF PAIN NOTED. KEPT IN A QUIET AND COMFORTABLE ENVIRONMENT.
[2020-06-14] MEDS: MORPHINE SULFATE INJ 4 MG/ML DISP.SYRIN IV PRN (02:21)
--- NOTE | 2020-06-14 02:21 | NUR ---
RN NOTES PT COMPLAINED OF 9/10 PAIN AFTER REPOSITIONED. ABDUCTOR PILLOW SECURED. MORPHINE IVP GIVEN ORDERED, WILL CONTINUE TO MONITOR.
[2020-06-14 04:00] VITALS: BP 129/70
[2020-06-14 05:58] LABS: BASOPHILS # (AUTO) 0.1 /CMM (0.0-0.2); EOSINOPHILS % (AUTO) 3.6 % (0.0-6.0); HEMATOCRIT 30 % (33-45); HEMOGLOBIN 10.1 g/dL (11.5-14.8); LYMPHOCYTES # (AUTO) 2.2 /CMM (0.8-4.8); MEAN CORPUSCULAR HGB CONC 34 g/dl (31.0-36.0); MEAN CORPUSCULAR VOLUME 93 fL (82-100); MONOCYTES # (AUTO) 1.6 /CMM (0.1-1.30); MONOCYTES % (AUTO) 13.1 % (2.0-12.0); NEUTROPHILS % (AUTO) 64.3 % (43.0-81.0); PLATELET COUNT (AUTO) 203 /CMM (150-450); RED BLOOD CELL COUNT(AUTO) 3.21 MIL/uL (4.0-5.2); WHITE BLOOD COUNT (AUTO) 12.4 K/uL (4.3-11.0)
[2020-06-14 06:35] LABS: CALCIUM, SERUM 8.7 mg/dL (8.5-10.1); CREATININE 1.1 mg/dL (0.6-1.3); POTASSIUM 4.1 mmol/L (3.5-5.1)
[2020-06-14] MEDS: LEVOTHYROXINE SODIUM 100 MCG TABLET PO SCH (06:53)
[2020-06-14] MEDS: BLOOD SUGAR DIAGNOSTIC 1 EACH STRIP IN SCH ×4 (06:59→21:24)
[2020-06-14] MEDS: INSULIN REGULAR, HUMAN 100 UNIT/ML 3 ML VIAL SQ PRN ×4 (07:00→21:26)
--- NOTE | 2020-06-14 07:00 | NUR ---
RN OPENING NOTES RECEIVED PT IN BED, ASLEEP BUT EASY TO AROUSE. ON ROOM AIR SATING @98%. NO SOB OR ANY RESPIRATORY DISTRESS. TOLERABLE PAIN ON RIGHT ARM AND RIGHT HIP. SURGICAL DRESSING CLEAN DRY AND INTACT. LAC IV LINE INTACT, PATENT AND FLUSHED. HIP ABDUCTOR PILLOW IN PLACE. LANDIN CATH IN PLACE WITH CLEAR URINE OUTPUT. ALL SAFETY MEASURES IMPLEMENTED. CALL LIGHT WITHIN REACH. BED LOCKED AND IN LOWEST POSITION WITH SIDE RAILS UP X2. WILL CONTINUE TO MONITOR.
--- NOTE | 2020-06-14 07:10 | NUR ---
RN CLOSING NOTE PT REMAINS IN BED. NO SIGNIFICANT CHANGES NOTED. PT DENIES PAIN AT THIS TIME. WOUND TX DONE ORDERED. SURGICAL SITE, NO SIGNS OF INFECTION. DRESSING CLEAN DRY AND INTACT. ALL NEEDS ATTENDED. ALL SAFETY MEASURES MAINTAINED. CALL LIGHT WITHIN REACH AT ALL TIMES. WILL ENDORSE TO NEXT SHIFT NURSE FOR ABRIL.
[2020-06-14] MEDS: ALLOPURINOL 100 MG TABLET PO SCH ×2 (08:46→17:38)
[2020-06-14] MEDS: MAGNESIUM OXIDE 400 MG TABLET PO SCH (08:46)
[2020-06-14] MEDS: DULOXETINE HCL 30 MG CAPSULE.DR PO SCH (08:46)
[2020-06-14] MEDS: OXYBUTYNIN CHLORIDE ER 5 MG TAB PO SCH (08:46)
[2020-06-14] MEDS: ASPIRIN EC 81 MG TABLET.DR PO SCH (08:46)
[2020-06-14] MEDS: LEVETIRACETAM (250 MG) 250 MG TABLET PO SCH ×2 (08:46→17:37)
[2020-06-14] MEDS: SERTRALINE HCL 50 MG TABLET PO SCH (08:46)
[2020-06-14] MEDS: METFORMIN 500 MG TABLET PO SCH ×2 (08:46→17:38)
[2020-06-14] MEDS: DONEPEZIL 5 MG TABLET PO SCH (08:46)
[2020-06-14] MEDS: DOCUSATE SODIUM 100 MG CAPSULE PO SCH ×2 (08:46→17:38)
[2020-06-14] MEDS: AMIODARONE HCL 200 MG TABLET PO SCH (08:49)
[2020-06-14] MEDS: ENOXAPARIN SODIUM 40 MG/0.4 ML DISP.SYRIN SQ SCH (08:50)
[2020-06-14] MEDS: PANTOPRAZOLE 40 MG/PACK PACK PO SCH (08:53)
[2020-06-14] MEDS: Z GUARD REMEDY 2 OZ OINT TP SCH (08:53)
--- NOTE | 2020-06-14 10:05 | NUR ---
WOUND CARE: PT SEEN FOR SKIN ASSESSMENT AND NOTED TO HAVE SKIN TEAR/ABRASION TO RT ELBOW AREA AND DEEP TISSUE INJURY, NOW IN EVOLUTION, PRESENT ON ADMISSION. RECOMMENDATIONS MADE FOR SKIN PROTECTION AND WOUND CARE. DISCUSSED WITH NURSING STAFF. IN AGREEMENT WITH PLAN OF CARE. Addendum: 06/14/20 at 1006 by NAM LEWIS WNDNU Amended: Links added.
[2020-06-14 12:00] VITALS: BP 127/70
[2020-06-14] MEDS: ATORVASTATIN 10 MG TABLET PO SCH (17:38)
--- NOTE | 2020-06-14 19:30 | NUR ---
RN OPENING NOTE RECEIVED PATIENT IN BED RESTING ALERT ORIENTED X3 VERBALLY RESPONSIVE ON ROOM AIR O2:95% IV SITE IS ON LEFT AC INTACT PATENT,LANDIN CATHETER IN PLACE,URINE DRAINING YELLOW AND CLEAR,SAFETY MEASURE IMPLEMENT CALL LIGHT WITHIN REACH,BED IN LOW POSITION AND LOCKED,CONTINUE TO MONITOR.
--- NOTE | 2020-06-14 19:32 | NUR ---
RN CLOSING NOTES PT RESTING IN BED. NO SIGNIFICANT CHANGES THROUGHOUT THE SHIFT. NEEDS ATTENDED, ALL DUE MEDS GIVEN. SAFETY MEASURES IN PLACE. WILL ENDORSE TO NIGHT NURSE FOR ABRIL.
[2020-06-14 20:00] VITALS: BP 149/66
[2020-06-14] MEDS: SENNOSIDES 8.6 MG TABLET PO SCH (21:13)
--- NOTE | 2020-06-14 21:25 | NUR ---
RN NOTE BLOOD SUGAR 94 NOT COVERAGE INSULIN SLIDING SCALE CONTINUE TO MONITOR
[2020-06-14] MEDS: ACETAMINOPHEN 325 MG TABLET PO PRN (21:40)
[2020-06-15 04:00] VITALS: BP 116/59
[2020-06-15 06:27] LABS: BASOPHILS # (AUTO) 0.1 /CMM (0.0-0.2); BASOPHILS % (AUTO) 1.2 % (0.0-2.0); EOSINOPHILS % (AUTO) 7.7 % (0.0-6.0); HEMATOCRIT 33 % (33-45); HEMOGLOBIN 10.9 g/dL (11.5-14.8); LYMPHOCYTES # (AUTO) 2.4 /CMM (0.8-4.8); MEAN CORPUSCULAR HGB CONC 33 g/dl (31.0-36.0); MEAN CORPUSCULAR VOLUME 94 fL (82-100); MONOCYTES # (AUTO) 1.7 /CMM (0.1-1.30); MONOCYTES % (AUTO) 13.3 % (2.0-12.0); NEUTROPHILS # (AUTO) 7.4 /CMM (1.8-8.9); NEUTROPHILS % (AUTO) 58.8 % (43.0-81.0); PLATELET COUNT (AUTO) 244 /CMM (150-450); RED BLOOD CELL COUNT(AUTO) 3.53 MIL/uL (4.0-5.2); WHITE BLOOD COUNT (AUTO) 12.6 K/uL (4.3-11.0)
[2020-06-15 06:49] LABS: CALCIUM, SERUM 9.1 mg/dL (8.5-10.1); POTASSIUM 3.8 mmol/L (3.5-5.1)
--- NOTE | 2020-06-15 06:54 | NUR ---
RN CLOSING NOTE PATIENT REMAINS ON ALERT ORIENTED X3 VERBALLY RESPONSIVE NO SOB NOT ACUTE DISTRESS NOTED ON ROOM AIR O2:95% IV SITE IS ON LEFT AC INTACT PATENT LANDIN IN PLACE URINE DRAINING YELLOW AND CLEAR ALL DUE MEDS GIVEN MD ORDERED KEPT CLEAN AND DRY ALL THE TIME,KEPT COMFORTABLE,ALL NEEDS MET.SAFETY MEASURE IMPLEMENTED,KEPT CALL LIGHT WITHIN REACH,ENDORSE NEXT COMING SHIFT FOR CONTINUATION OF CARE.
--- NOTE | 2020-06-15 07:30 | NUR ---
RN OPENING NOTE PATIENT IS IN BED WITH HOB AT SEMI FOWLERS POSITION. CURRENTLY AOX3, ON ROOM AIR WITH NO SIGNS OF LABORED BREATHING. LANDIN CATHETER IS IN PLACE. R HIP SURGICAL INCISION, R SHOULDER BRUISING, AND SACRAL REDNESS ARE NOTED. LEFT AC#20 IS PATENT, INTACT, AND HAS NO SIGNS OF INFILTRATION. BED IS LOCKED IN THE LOWEST POSITION, 3 GUARD RAILS RAISED, CALL JOHNSON WITHIN REACH, AND ALL HOSPITAL SAFETY PRECAUTIONS ARE BEING FOLLOWED. WILL CONTINUE TO MONITOR THROUGHOUT SHIFT.
[2020-06-15] MEDS: LEVOTHYROXINE SODIUM 100 MCG TABLET PO SCH (07:40)
[2020-06-15] MEDS: BLOOD SUGAR DIAGNOSTIC 1 EACH STRIP IN SCH ×4 (07:55→22:06)
[2020-06-15] MEDS: LEVETIRACETAM (250 MG) 250 MG TABLET PO SCH ×2 (08:27→16:40)
[2020-06-15] MEDS: PANTOPRAZOLE 40 MG/PACK PACK PO SCH (08:27)
[2020-06-15] MEDS: METFORMIN 500 MG TABLET PO SCH ×2 (08:28→16:40)
[2020-06-15] MEDS: DONEPEZIL 5 MG TABLET PO SCH (08:28)
[2020-06-15] MEDS: DOCUSATE SODIUM 100 MG CAPSULE PO SCH ×2 (08:28→16:40)
[2020-06-15] MEDS: DULOXETINE HCL 30 MG CAPSULE.DR PO SCH (08:28)
[2020-06-15] MEDS: AMIODARONE HCL 200 MG TABLET PO SCH (08:28)
[2020-06-15] MEDS: ASPIRIN EC 81 MG TABLET.DR PO SCH (08:28)
[2020-06-15] MEDS: ALLOPURINOL 100 MG TABLET PO SCH ×2 (08:28→16:40)
[2020-06-15] MEDS: MAGNESIUM OXIDE 400 MG TABLET PO SCH (08:28)
[2020-06-15] MEDS: SERTRALINE HCL 50 MG TABLET PO SCH (08:29)
[2020-06-15] MEDS: OXYBUTYNIN CHLORIDE ER 5 MG TAB PO SCH (08:29)
[2020-06-15] MEDS: ENOXAPARIN SODIUM 40 MG/0.4 ML DISP.SYRIN SQ SCH (08:30)
[2020-06-15] MEDS: Z GUARD REMEDY 2 OZ OINT TP SCH (09:00)
[2020-06-15 12:00] VITALS: BP 157/69
[2020-06-15] MEDS: INSULIN REGULAR, HUMAN 100 UNIT/ML 3 ML VIAL SQ PRN ×2 (12:22→22:10)
[2020-06-15] MEDS: HYDROCODONE/APAP 10/325MG TABLET PO PRN (13:07)
[2020-06-15] MEDS: ATORVASTATIN 10 MG TABLET PO SCH (17:46)
--- NOTE | 2020-06-15 19:06 | NUR ---
RN CLOSING NOTE PATIENT IS IN BED WITH HOB AT SEMI FOWLERS POSITION. CURRENTLY AOX3, ON ROOM AIR WITH NO SIGNS OF LABORED BREATHING. LANDIN CATHETER IS IN PLACE. R HIP SURGICAL INCISION, R SHOULDER BRUISING, R SKIN FOLD REDNESS.TEAR AND SACRAL REDNESS ARE NOTED. LEFT AC#20 IS PATENT, INTACT, AND HAS NO SIGNS OF INFILTRATION. ALL MEDS GIVEN AND PATIENT REMAINED STABLE THROUGHOUT SHIFT. BED IS LOCKED IN THE LOWEST POSITION, 3 GUARD RAILS RAISED, CALL JOHNSON WITHIN REACH, AND ALL HOSPITAL SAFETY PRECAUTIONS ARE BEING FOLLOWED. WILL ENDORSE TO BUSINESS SYSTEMS ANALYST RN.
--- NOTE | 2020-06-15 19:30 | NUR ---
RN OPENING NOTES RECEIVED PT IN BED. AWAKE. A/O X3. PT IS ON ROOM AIR. TOLERATING WELL. NO S/S OF SOB OR RESP DISTRESS. BREATHING EVEN AND UNLABORED. PT IS ON M/S MONITORING. IV SITE, LFA FLUSHED, SL. PT HAS RIGHT HIP INCISION, RIGHT SHOULDER BRUISING NOTED, ARM IN SLING AT THIS TIME. PT REPORTS TOLERABLE PAIN 2/10 AT THIS TIME. DENIES NEED FOR MEDICATION. WILL CONT TO F/U. SAFETY MEASURES IN PLACE. ISOLATION PRECAUTIONS IMPLEMENTED PENDING PCR COVID RESULT. HOB ELEVATED TOLERATE. PT VERBALIZES COMFORTABLE IN CURRENT POSITION. SIDE RAILS UP X2. BED LOCKED IN LOWEST POSITION WITH BED ALARM ON. CALL LIGHT WITHIN REACH. WILL CONT TO MONITOR.
[2020-06-15 20:00] VITALS: BP 136/68
[2020-06-15] MEDS: SENNOSIDES 8.6 MG TABLET PO SCH (22:06)
--- NOTE | 2020-06-16 00:55 | NUR ---
UPON ROUNDS, PT RESTING COMFORTABLY. AROUSABLE. DENIES PAIN. NEEDS ATTENDED. WILL CONT TO MONITOR.
[2020-06-16 04:00] VITALS: BP 127/60
--- NOTE | 2020-06-16 06:25 | NUR ---
RN CLOSING NOTES NO SIGNIFICANT CHANGES IN PT CONDITION. WOUND TX DONE ORDERED. PT REMAINS ON ROOM AIR. NO RESP DISTRESS NOTED. NO SOB AT THIS TIME. PT IS AFEBRILE. DENIES PAIN. NEEDS ATTENDED. RIGHT LEG ABDUCTED. RIGHT ARM IN SLING. SAFETY MEASURES IN PLACE. HOB ELEVATED. SIDE RAILS UP X2. BED LOCKED IN LOWEST POSITION. CALL LIGHT WITHIN REACH. WILL ENDORSE TO AM NURSE FOR CONTINUATION OF CARE.
[2020-06-16 06:37] LABS: BASOPHILS # (AUTO) 0.1 /CMM (0.0-0.2); EOSINOPHILS % (AUTO) 7.5 % (0.0-6.0); HEMATOCRIT 30 % (33-45); HEMOGLOBIN 9.7 g/dL (11.5-14.8); LYMPHOCYTES # (AUTO) 2.5 /CMM (0.8-4.8); LYMPHOCYTES % (AUTO) 18.9 % (20.0-44.0); MEAN CORPUSCULAR HGB CONC 33 g/dl (31.0-36.0); MEAN CORPUSCULAR VOLUME 94 fL (82-100); MONOCYTES # (AUTO) 1.6 /CMM (0.1-1.30); MONOCYTES % (AUTO) 11.9 % (2.0-12.0); NEUTROPHILS # (AUTO) 8.1 /CMM (1.8-8.9); NEUTROPHILS % (AUTO) 60.7 % (43.0-81.0); PLATELET COUNT (AUTO) 313 /CMM (150-450); RED BLOOD CELL COUNT(AUTO) 3.16 MIL/uL (4.0-5.2); WHITE BLOOD COUNT (AUTO) 13.4 K/uL (4.3-11.0)
[2020-06-16 06:57] LABS: CALCIUM, SERUM 8.5 mg/dL (8.5-10.1)
--- NOTE | 2020-06-16 07:30 | NUR ---
RN OPENING NOTES PATIENT PRESENT IN BED, A/OX3, CITIZEN OF [place] SPEAKING, ON RA, TOLERATING WELL, SPO2 IS99%, NO SOB NOTED, RIGHT SLING NOTED, POST R HIP SX STATUS NOTED, POSITIONED COMFORTABLY, L AC IV LINE CLUMPED, PATENT AND INTACT, SAFETY MEASURES IN PLACE, CALL LIGHT IN REACH, BED LOCKED, IN LOWEST POSITION, WILL CONT TO MONITOR
[2020-06-16] MEDS: BLOOD SUGAR DIAGNOSTIC 1 EACH STRIP IN SCH ×4 (07:58→22:09)
[2020-06-16] MEDS: LEVOTHYROXINE SODIUM 100 MCG TABLET PO SCH (07:58)
[2020-06-16 08:00] VITALS: BP 131/69
[2020-06-16] MEDS: ASPIRIN EC 81 MG TABLET.DR PO SCH (09:13)
[2020-06-16] MEDS: DOCUSATE SODIUM 100 MG CAPSULE PO SCH ×2 (09:13→16:14)
[2020-06-16] MEDS: OXYBUTYNIN CHLORIDE ER 5 MG TAB PO SCH (09:13)
[2020-06-16] MEDS: AMIODARONE HCL 200 MG TABLET PO SCH (09:14)
[2020-06-16] MEDS: ALLOPURINOL 100 MG TABLET PO SCH ×2 (09:14→16:14)
[2020-06-16] MEDS: MAGNESIUM OXIDE 400 MG TABLET PO SCH (09:15)
[2020-06-16] MEDS: SERTRALINE HCL 50 MG TABLET PO SCH (09:15)
[2020-06-16] MEDS: METFORMIN 500 MG TABLET PO SCH ×2 (09:15→16:15)
[2020-06-16] MEDS: PANTOPRAZOLE 40 MG/PACK PACK PO SCH (09:15)
[2020-06-16] MEDS: DULOXETINE HCL 30 MG CAPSULE.DR PO SCH (09:15)
[2020-06-16] MEDS: DONEPEZIL 5 MG TABLET PO SCH (09:15)
[2020-06-16] MEDS: LEVETIRACETAM (250 MG) 250 MG TABLET PO SCH ×2 (09:16→16:14)
[2020-06-16] MEDS: Z GUARD REMEDY 2 OZ OINT TP SCH (09:16)
[2020-06-16] MEDS: ENOXAPARIN SODIUM 40 MG/0.4 ML DISP.SYRIN SQ SCH (09:17)
[2020-06-16 12:00] VITALS: BP 149/61
[2020-06-16] MEDS: HYDROCODONE/APAP 10/325MG TABLET PO PRN (12:14)
[2020-06-16 17:20] VITALS: BP 124/51
[2020-06-16] MEDS: ATORVASTATIN 10 MG TABLET PO SCH (17:49)
--- NOTE | 2020-06-16 18:37 | NUR ---
N CLOSING NOTES STABLE THROUGH THE SHIFT, ON ROOM AIR, BREATHING COMFORTABLY, COMFORT NEEDS ATTENDED.WAS ABLE TO EAT BY HERSELF, BREALFAST 50%, LUNCH 50%, AND DINNER 75%, RIGHT LEG ABDUCTED. RIGHT ARM IN SLING. SAFETY MEASURES IN PLACE. HOB ELEVATED. SIDE RAILS UP X2. BED LOCKED IN LOWEST POSITION. CALL LIGHT WITHIN REACH. WILL ENDORSE TO PM COLLIN PULIDO FOR ABRIL
--- NOTE | 2020-06-16 19:45 | NUR ---
RN NOTE PATIENT A/OX3. ABLE TO MAKE NEEDS KNOWN. NO SOB OR ANY RESPIRATORY DISTRESS. ON ROOM AIR, O2 SAT WNL. WITH LANDIN CATH, PATENT AND INTACT DRAINING YELLOW URINE TO GRAVITY. WITH LEFT AC #24, PATENT AND INTACT. DENIES ANY PAIN AT THIS TIME. CALL LIGHT WITHIN REACH. BED LOCKED AND IN LOWEST POSITION. SIDE RAILS UP X2. WILL CONTINUE TO MONITOR.
--- NOTE | 2020-06-16 21:00 | NUR ---
GAVE REPORT TO FRANCHESKA FROM [facility]. PATIENT TRANSFERRED TO ROOM 309-2 PER ACLS PROTOCOL IN STABLE CONDITION. ALL BELONGINGS TRANSFERRED WITH PATIENT.
--- NOTE | 2020-06-16 21:30 | NUR ---
RECEIVED REPORT FROM BETO NURSE AND RECEIVED PT BY BED ACCOMPANIED BY THE NURSE AND CONTRACT PROCESSOR . SHE'S A/OX 2-3 . PATIENT IN NO S/SX OF ACUTE DISTRESS AT THIS TIME. DENIES ANY ANTONIO OR ANY DISCOMFORT. PATIENT'S BREATHING IS EVEN AND UNLABORED; NOTED IV SITE ON LEFT AC#24; PATENT, INTACT AND FLUSHING WELL; NO S/S OF INFECTION OR INFILTRATION. SAFETY MEASURES HAVE BEEN PROVIDED AND IMPLEMENTED. PATIENT BED ALARM IS ON. HEAD OF BED ELEVATED. BED IS LOCKED, IN LOWEST POSITION AND SIDE RAILS UP. CALL LIGHT WITHIN REACH OF THE PATIENT. WILL CONTINUE TO MONITOR .
[2020-06-16 21:46] VITALS: BP 130/75
[2020-06-16] MEDS: SENNOSIDES 8.6 MG TABLET PO SCH (22:09)
[2020-06-16] MEDS: INSULIN REGULAR, HUMAN 100 UNIT/ML 3 ML VIAL SQ PRN (22:12)
--- NOTE | 2020-06-16 22:15 | NUR ---
AIR DRIER NOTES BLOOD SUGAR CHECKED DONE 113 NO INSULIN DUE AT THIS TIME. NO SIGNS OF HYPO GLYCEMIA NOTED. WILL CONTINUE MONITORING.
--- NOTE | 2020-06-17 03:36 | NUR ---
MS VAISHALI NOTES PT REMAIN SLEEPING COMFORTABLY IN BED WITHOUT ANY DISTRESS OR ANY DISCOMFORT NOTED. KEPT HER WARM AND COMFORTABLE AT ALL TIMES. WILL CONTINUE MONITORING. PLACE CALL LIGHT AT REACH.
--- NOTE | 2020-06-17 04:00 | NUR ---
ms publication manager notes pt woke up screaming because she scared , confused when she heard the other someone screaming in the hallway , she's thinking that the other pt will go to her room , i spoke to her to re-oriented her where she at and hold her hand to calmed her down and stayed on her room for a while just to let her know that she's safe. then patient noted back to sleep . kept her warm and comfortable at all times. place call light at reach. will continue monitoring.
[2020-06-17] MEDS: INSULIN REGULAR, HUMAN 100 UNIT/ML 3 ML VIAL SQ PRN ×3 (06:30→21:29)
[2020-06-17] MEDS: BLOOD SUGAR DIAGNOSTIC 1 EACH STRIP IN SCH ×4 (06:31→21:25)
--- NOTE | 2020-06-17 06:41 | NUR ---
ms chester closing notes pt awake at this time. watching tv calmed and quiet. she asked me to stayed with her so i decided to stayed in her room while doing my charting for pt satisfaction. Blood sugar checked done 121, no insulin due at this time. no signs of hypo glycemia noted. kept her warm and comfortable at all times. will continue monitoring. place call light at reach. will endorse to am nurse for continuity of care. bed alarm set for pt safety.
--- NOTE | 2020-06-17 07:25 | NUR ---
MS RN NOTES PATIENT IN BED ALERT ORIENTED X 2. NO ACUTE DISTRESS NOTED. BREATHING UNLABORED. IA ACCESS PATENT AND INTACT, NO REDNESS, NO SWELLING NOTED. LANDIN CATHETER INTACT DRAINING WELL. SAFETY MEASURES IN PLACE. CALL LIGHT WITHIN REACH. WILL CONTINUE TO MONITOR ACCORDINGLY
[2020-06-17 08:00] VITALS: BP 150/65
[2020-06-17] MEDS: LEVOTHYROXINE SODIUM 100 MCG TABLET PO SCH (08:10)
[2020-06-17] MEDS: LEVETIRACETAM (250 MG) 250 MG TABLET PO SCH ×2 (09:22→18:00)
[2020-06-17] MEDS: AMIODARONE HCL 200 MG TABLET PO SCH (09:23)
[2020-06-17] MEDS: METFORMIN 500 MG TABLET PO SCH ×2 (09:24→18:00)
[2020-06-17] MEDS: MAGNESIUM OXIDE 400 MG TABLET PO SCH (09:24)
[2020-06-17] MEDS: PANTOPRAZOLE 40 MG/PACK PACK PO SCH (09:24)
[2020-06-17] MEDS: DOCUSATE SODIUM 100 MG CAPSULE PO SCH ×2 (09:24→17:59)
[2020-06-17] MEDS: SERTRALINE HCL 50 MG TABLET PO SCH (09:24)
[2020-06-17] MEDS: DULOXETINE HCL 30 MG CAPSULE.DR PO SCH (09:24)
[2020-06-17] MEDS: DONEPEZIL 5 MG TABLET PO SCH (09:24)
[2020-06-17] MEDS: OXYBUTYNIN CHLORIDE ER 5 MG TAB PO SCH (09:24)
[2020-06-17] MEDS: ASPIRIN EC 81 MG TABLET.DR PO SCH (09:24)
[2020-06-17] MEDS: ALLOPURINOL 100 MG TABLET PO SCH ×2 (09:24→18:00)
[2020-06-17] MEDS: ENOXAPARIN SODIUM 40 MG/0.4 ML DISP.SYRIN SQ SCH (09:29)
[2020-06-17] MEDS: Z GUARD REMEDY 2 OZ OINT TP SCH (09:36)
[2020-06-17 10:26] LABS: BASOPHILS # (AUTO) 0.1 /CMM (0.0-0.2); BASOPHILS % (AUTO) 0.7 % (0.0-2.0); HEMATOCRIT 34 % (33-45); HEMOGLOBIN 10.9 g/dL (11.5-14.8); LYMPHOCYTES # (AUTO) 1.8 /CMM (0.8-4.8); LYMPHOCYTES % (AUTO) 14.3 % (20.0-44.0); MEAN CORPUSCULAR HGB CONC 32 g/dl (31.0-36.0); MEAN CORPUSCULAR VOLUME 93 fL (82-100); MONOCYTES # (AUTO) 1.1 /CMM (0.1-1.30); MONOCYTES % (AUTO) 8.4 % (2.0-12.0); NEUTROPHILS % (AUTO) 70.6 % (43.0-81.0); PLATELET COUNT (AUTO) 436 /CMM (150-450); RED BLOOD CELL COUNT(AUTO) 3.63 MIL/uL (4.0-5.2); WHITE BLOOD COUNT (AUTO) 12.8 K/uL (4.3-11.0)
[2020-06-17 10:36] LABS: CALCIUM, SERUM 9.4 mg/dL (8.5-10.1); CREATININE 1.1 mg/dL (0.6-1.3); POTASSIUM 3.7 mmol/L (3.5-5.1)
[2020-06-17 16:00] VITALS: BP 133/75
[2020-06-17] MEDS: ATORVASTATIN 10 MG TABLET PO SCH (18:00)
--- NOTE | 2020-06-17 19:00 | NUR ---
MS RN NOTES PATIENT IN BED ALERT ORIENTED X 2. NO ACUTE DISTRESS NOTED. BREATHING UNLABORED. IA ACCESS PATENT AND INTACT, NO REDNESS, NO SWELLING NOTED. LANDIN CATHETER INTACT DRAINING WELL. SAFETY MEASURES IN PLACE. CALL LIGHT WITHIN REACH. WILL ENDORSE TO NIGHT NURSE FOR CONTINUITY OF CARE.
[2020-06-17 20:00] VITALS: BP 111/74
--- NOTE | 2020-06-17 20:00 | NUR ---
RN NOTES RECEIVED PATIENT IN BED, ALERT AND ORIENTED X2, STABLE ON ROOM AIR, S/P RIGHT HIP HEMIARTHROPLASTY, COMFORTABLE AT REST, PAIN ON REPOSITIONING, LANDIN CATHETER DRAINING, THERESE COLORED URINE, RIGHT HIP DRESSING CLEAN, DRY AND INTACT, SCD IN PLACE, WILL CONTINUE TO MONITOR
[2020-06-17] MEDS: SENNOSIDES 8.6 MG TABLET PO SCH (21:26)
--- NOTE | 2020-06-18 06:14 | NUR ---
RN NOTES ALERT AND ORIENTED X2, ROOM AIR, COMFORTABLE AT REST, PAIN DURING REPOSITIONING, RIGHT HIP DRESSING CLEAN AND INTACT, LANDIN CATHETER DRAINING, NOTED SLIGHT HEMATURIA, NO FURTHER BLEEDING NOTED, CBC AND BMP IN AM, NOT DOING GOOD WITH PT PER REPORT, FOR DISCHARGE PLANNING TO SNF TO CONTINUE PT.
[2020-06-18] MEDS: BLOOD SUGAR DIAGNOSTIC 1 EACH STRIP IN SCH ×4 (06:47→22:22)
[2020-06-18] MEDS: INSULIN REGULAR, HUMAN 100 UNIT/ML 3 ML VIAL SQ PRN ×2 (06:48→12:23)
--- NOTE | 2020-06-18 06:48 | NUR ---
RN NOTES BG 124, NO INSULIN GIVEN
[2020-06-18 07:07] LABS: BASOPHILS # (AUTO) 0.2 /CMM (0.0-0.2); BASOPHILS % (AUTO) 1.1 % (0.0-2.0); EOSINOPHILS % (AUTO) 6.7 % (0.0-6.0); HEMATOCRIT 35 % (33-45); HEMOGLOBIN 11.2 g/dL (11.5-14.8); LYMPHOCYTES # (AUTO) 3.1 /CMM (0.8-4.8); MEAN CORPUSCULAR HGB CONC 32 g/dl (31.0-36.0); MEAN CORPUSCULAR VOLUME 97 fL (82-100); MONOCYTES # (AUTO) 1.7 /CMM (0.1-1.30); MONOCYTES % (AUTO) 10.4 % (2.0-12.0); NEUTROPHILS # (AUTO) 10.4 /CMM (1.8-8.9); NEUTROPHILS % (AUTO) 62.8 % (43.0-81.0); PLATELET COUNT (AUTO) 482 /CMM (150-450); RED BLOOD CELL COUNT(AUTO) 3.65 MIL/uL (4.0-5.2); WHITE BLOOD COUNT (AUTO) 16.6 K/uL (4.3-11.0)
[2020-06-18 07:14] LABS: CALCIUM, SERUM 9.3 mg/dL (8.5-10.1); CREATININE 0.9 mg/dL (0.6-1.3); POTASSIUM 4.2 mmol/L (3.5-5.1)
[2020-06-18 08:00] VITALS: BP 134/77
--- NOTE | 2020-06-18 08:00 | NUR ---
RN Opening note Received patient in bed. AO x 2-3 does no appears pain or distress. Skin is warm to touch, keep clean/dry, intact IV with SL. Respiratory even and unlabored on rom air. Kept elevated HOB for ensure airway and aspiration precaution and lowering bed position for safety. Call light within reach, will continue to monitor.
[2020-06-18] MEDS: PANTOPRAZOLE 40 MG/PACK PACK PO SCH (08:27)
[2020-06-18] MEDS: AMIODARONE HCL 200 MG TABLET PO SCH (08:28)
[2020-06-18] MEDS: METFORMIN 500 MG TABLET PO SCH ×2 (08:28→16:52)
[2020-06-18] MEDS: DONEPEZIL 5 MG TABLET PO SCH (08:28)
[2020-06-18] MEDS: LEVETIRACETAM (250 MG) 250 MG TABLET PO SCH ×2 (08:28→16:50)
[2020-06-18] MEDS: DULOXETINE HCL 30 MG CAPSULE.DR PO SCH (08:28)
[2020-06-18] MEDS: MAGNESIUM OXIDE 400 MG TABLET PO SCH (08:28)
[2020-06-18] MEDS: DOCUSATE SODIUM 100 MG CAPSULE PO SCH ×2 (08:28→16:50)
[2020-06-18] MEDS: OXYBUTYNIN CHLORIDE ER 5 MG TAB PO SCH (08:28)
[2020-06-18] MEDS: SERTRALINE HCL 50 MG TABLET PO SCH (08:29)
[2020-06-18] MEDS: ALLOPURINOL 100 MG TABLET PO SCH ×2 (08:29→16:50)
[2020-06-18] MEDS: LEVOTHYROXINE SODIUM 100 MCG TABLET PO SCH (08:29)
[2020-06-18] MEDS: ASPIRIN EC 81 MG TABLET.DR PO SCH (08:29)
[2020-06-18] MEDS: ENOXAPARIN SODIUM 40 MG/0.4 ML DISP.SYRIN SQ SCH (08:33)
[2020-06-18] MEDS: Z GUARD REMEDY 2 OZ OINT TP SCH (08:34)
--- NOTE | 2020-06-18 15:30 | NUR ---
Due to trending up WBC level,more testing was ordered to r/o active infection and cancel discharge today per MD.Family does not was SNF or ARU. Family prefer patient to return to the board and care. Spoke with Teetee from [facility] [phone], made aware of possible discharge tomorrow. Per Teetee, patient was previously with [facility] and would like to use the same company. Spoke with Nandini at [employer] [phone] and faxed clinicals. [employer] will start service on Saturday. Addendum: 06/18/20 at 1921 by GILBERTO LEIJA RN Amended: Links added.
[2020-06-18 16:06] VITALS: BP 129/67
--- NOTE | 2020-06-18 16:53 | NUR ---
Patient BS 87 mg/dl will hold Metformin at this time.
[2020-06-18] MEDS: ATORVASTATIN 10 MG TABLET PO SCH (17:22)
--- NOTE | 2020-06-18 18:37 | NUR ---
RN Closing note Patient in bed, remains AO x 2-3. Respiratory even and unlabored on room air, no SOB or distress observed. Skin is warm to touch, keep clean/dry, intact IV site on left AC 24g. Changed dressing on sacral, no active bleeding, clean & dry on post right hip Sx stitches. Keep elevated HOB for ensure airway and aspiration precaution, also lowest bed position for safety. Encouraged oral fluid intake as tolerated. 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
[2020-06-18 18:43] LABS: BILIRUBIN,URINE SMALL (NEGATIVE); COLOR,URINE YELLOW (YELLOW); LEUKOCYTE ESTERASE ,URINE LARGE (NEGATIVE); NITRITE, URINE POSITIVE (NEGATIVE); PROTEIN,URINE 100 mg/dl (NEGATIVE); UGLUCOSE NEGATIVE (NEGATIVE); UROBILINOGEN,URINE 0.2 EU/dL (0.2)
[2020-06-18 18:45] LABS: PH,URINE >8.5 (5.0-8.0)
[2020-06-18 18:53] LABS: BACTERIA,URINE 4+ /HPF (None Seen); RBC,URINE 51-80 /HPF (0-2); WBC,URINE TOO NUMEROUS TO COUN /HPF (0-3)
[2020-06-18 18:54] LABS: TRIPLE PHOSPHATE CRYSTAL,UR Moderate /HPF (None Seen)
[2020-06-18 18:55] LABS: SQUAMOUS EPITHELIAL CELL,UR 0-2 /HPF (None Seen)
--- NOTE | 2020-06-18 19:37 | NUR ---
RN NOTES Received patient in bed. AO x 2-3 does no appears pain or distress. Skin is warm to touch, keep clean/dry, intact IV with SL. Respiratory even and unlabored on room air. Kept elevated HOB for ensure airway and aspiration precaution and lowering bed position for safety. Call light within reach, will continue to monitor.
[2020-06-18 20:00] VITALS: BP_SYST 129; BP_SYST 132; BP_DIAS 66; BP_DIAS 69
[2020-06-18] MEDS: SENNOSIDES 8.6 MG TABLET PO SCH (22:05)
[2020-06-18] MEDS ORDERED: CEFTRIAXONE 1 G in IV D5W 50 ML IV SCH (23:00)
[2020-06-18] MEDS ORDERED: CEFTRIAXONE 1 G VIAL ONE (23:14)
[2020-06-19 05:43] LABS: BASOPHILS # (AUTO) 0.2 /CMM (0.0-0.2); BASOPHILS % (AUTO) 1.1 % (0.0-2.0); EOSINOPHILS % (AUTO) 6.6 % (0.0-6.0); HEMATOCRIT 34 % (33-45); HEMOGLOBIN 10.7 g/dL (11.5-14.8); LYMPHOCYTES # (AUTO) 3.1 /CMM (0.8-4.8); MEAN CORPUSCULAR HGB CONC 32 g/dl (31.0-36.0); MEAN CORPUSCULAR VOLUME 94 fL (82-100); MONOCYTES # (AUTO) 1.5 /CMM (0.1-1.30); MONOCYTES % (AUTO) 8.9 % (2.0-12.0); NEUTROPHILS # (AUTO) 10.5 /CMM (1.8-8.9); NEUTROPHILS % (AUTO) 64.4 % (43.0-81.0); PLATELET COUNT (AUTO) 541 /CMM (150-450); WHITE BLOOD COUNT (AUTO) 16.3 K/uL (4.3-11.0)
[2020-06-19 06:46] LABS: CALCIUM, SERUM 8.6 mg/dL (8.5-10.1); CARBON DIOXIDE 27 mmol/L (21-32); CHLORIDE 105 mmol/L (98-107); GLUCOSE 122 mg/dL (74-106); POTASSIUM 3.8 mmol/L (3.5-5.1); SODIUM SERUM 141 mmol/L (136-145); UREA NITROGEN, BLOOD 30 mg/dL (7-18)
--- NOTE | 2020-06-19 07:08 | NUR ---
RN NOTES Patient in bed, remains AO x 2-3. Respiratory even and unlabored on room air, no SOB or distress observed. Skin is warm to touch, keep clean/dry, intact IV site on left AC 24g. Keep elevated HOB for ensure airway and aspiration precaution, also lowest bed position for safety. Encouraged oral fluid intake as tolerated. Call light within reach, will endorse to day shift.
[2020-06-19] MEDS: LEVOTHYROXINE SODIUM 100 MCG TABLET PO SCH (07:40)
[2020-06-19] MEDS: BLOOD SUGAR DIAGNOSTIC 1 EACH STRIP IN SCH ×2 (07:47→12:39)
--- NOTE | 2020-06-19 07:50 | NUR ---
RN Opening note Received patient in bed, AO x 2-3, does no appears pain or distress, able to responds all stimuli. Skin is warm to touch, keep clean/dry, intact IV with SL, patient started IV ATB no s/s of adverse reaction observed. Respiratory even and unlabored on room air. Kept elevated HOB for ensure airway and aspiration precaution and lowering bed position for safety. Call light within reach, will continue to monitor.
[2020-06-19 08:00] VITALS: BP 113/70
[2020-06-19] MEDS: ENOXAPARIN SODIUM 40 MG/0.4 ML DISP.SYRIN SQ SCH (08:25)
[2020-06-19] MEDS: PANTOPRAZOLE 40 MG/PACK PACK PO SCH (08:26)
[2020-06-19] MEDS: ASPIRIN EC 81 MG TABLET.DR PO SCH (08:26)
[2020-06-19] MEDS: METFORMIN 500 MG TABLET PO SCH (08:26)
[2020-06-19] MEDS: ALLOPURINOL 100 MG TABLET PO SCH (08:26)
[2020-06-19] MEDS: LEVETIRACETAM (250 MG) 250 MG TABLET PO SCH (08:26)
[2020-06-19] MEDS: DONEPEZIL 5 MG TABLET PO SCH (08:26)
[2020-06-19] MEDS: DULOXETINE HCL 30 MG CAPSULE.DR PO SCH (08:26)
[2020-06-19] MEDS: OXYBUTYNIN CHLORIDE ER 5 MG TAB PO SCH (08:26)
[2020-06-19] MEDS: MAGNESIUM OXIDE 400 MG TABLET PO SCH (08:26)
[2020-06-19 08:27] VITALS: BP 117/70
[2020-06-19] MEDS: AMIODARONE HCL 200 MG TABLET PO SCH (08:27)
[2020-06-19] MEDS: SERTRALINE HCL 50 MG TABLET PO SCH (08:27)
[2020-06-19] MEDS: DOCUSATE SODIUM 100 MG CAPSULE PO SCH (08:28)
[2020-06-19] MEDS: Z GUARD REMEDY 2 OZ OINT TP SCH (08:29)
--- NOTE | 2020-06-19 09:10 | NUR ---
Patient will continuos joseph cath according by [facility].
[2020-06-19] MEDS: INSULIN REGULAR, HUMAN 100 UNIT/ML 3 ML VIAL SQ PRN (12:38)
--- NOTE | 2020-06-19 17:11 | NUR ---
2 field service consultant picked up patient and given report include ABX prescription and follow up urine cx in 3 day for make sure correct ABX prescribed. Patient in stable condition bp-112/61, p-87.
--- NOTE | 2020-06-19 17:12 | NUR ---
Wound picture taken before patient leave, but patient refused sacral picture due to right hip pain.
[2020-06-19] MEDS ORDERED: SULF1TAB48 PO (20:32)
== END 2020-06-19 17:46 | disposition home or self-care (01) | DRG 521 ==
LOC: ER 14:50 → MEDSG1 18:29 → MED 06-16 21:16
PROVIDERS: ADMIT Nurse Practitioner Acute Care; ATTEND Family Medicine
PROC: 0SR90JA Replacement of Right Hip Joint with Synthetic Substitute, Uncemented, Open Approach (ICD-10-PCS; principal; 2020-06-11)
DX: S72.001A Fracture of unspecified part of neck of right femur, initial encounter for closed fracture (principal); N17.0 Acute kidney failure with tubular necrosis; S42.211A Unspecified displaced fracture of surgical neck of right humerus, initial encounter for closed fracture; E87.1 Hypo-osmolality and hyponatremia; N39.0 Urinary tract infection, site not specified; I48.91 Unspecified atrial fibrillation; K21.9 Gastro-esophageal reflux disease without esophagitis; W18.30XA Fall on same level, unspecified, initial encounter; D69.6 Thrombocytopenia, unspecified; I10 Essential (primary) hypertension; G40.909 Epilepsy, unspecified, not intractable, without status epilepticus; E03.9 Hypothyroidism, unspecified; F03.90 Unspecified dementia, unspecified severity, without behavioral disturbance, psychotic disturbance, mood disturbance, and anxiety; E11.65 Type 2 diabetes mellitus with hyperglycemia; Y92.129 Unspecified place in nursing home as the place of occurrence of the external cause; Z79.82 Long term (current) use of aspirin; Z79.899 Other long term (current) drug therapy; Z79.84 Long term (current) use of oral hypoglycemic drugs; E78.5 Hyperlipidemia, unspecified; F32.9 Major depressive disorder, single episode, unspecified; M10.9 Gout, unspecified; I48.0 Paroxysmal atrial fibrillation; D72.829 Elevated white blood cell count, unspecified; N32.81 Overactive bladder; E66.9 Obesity, unspecified; Z68.31 Body mass index [BMI] 31.0-31.9, adult; Z79.890 Hormone replacement therapy; N13.9 Obstructive and reflux uropathy, unspecified; E86.1 Hypovolemia; Z20.822 Contact with and (suspected) exposure to COVID-19
CPT/HCPCS: 36415; 71045-TC; 73030-TC; 73502; 80048-TC; 80061-TC; 81001; 82962-TC; 83735-TC; 84100-TC; 84439-TC; 84443-TC; 85025-TC; 87040-TC; 87081-TC; 87086-TC; 87186-TC; 88305-TC; 88311-TC; 93307-TC; 97110-TC; 97112-TC; 97530-TC; A4217; A4565; A6209; A6253; A6403; C1776; C9113; C9803; G0378; J0330; J0690; J0696; J1100; J1650; J1815; J1885; J2270; J2405; J2704; J3010; J3370; J3480; J3490; J7040; J7050; J7060; U0003